=== PATIENT | male | born 1960 | race Caucasian/White ===

== ENCOUNTER 2022-04-06 09:37 | Emergency (ER) | payer SELFPAY ==
[~2022-04-06] VITALS: Ht 180.3 cm; Wt 90.0 kg
[2022-04-06] MEDS ORDERED: LIDOCAINE HCL/PF 1% 10 MG/ML 5ML VIAL INFIL ONE ×2 (10:30→12:15)
[2022-04-06] MEDS ORDERED: BACITRACIN ZINC OINT UDPKT TOP ONE (10:30)
[2022-04-06] MEDS ORDERED: HYDROCODONE/ACETAMINOPHEN 5/325MG TABLET PO ONE (10:30)
[2022-04-06] MEDS ORDERED: TETANUS, DIPHTHERIA, PERTUSSIS VAC/PF 0.5ML (>10YR OLD) IM ONE (10:30)
[2022-04-06 11:26] VITALS: BP 177/93
[2022-04-06] MEDS ORDERED: IBUP-2029 PO (13:02)
== END 2022-04-06 13:36 | disposition home or self-care (01) ==
LOC: ER 09:37
DX: S61.011A Laceration without foreign body of right thumb without damage to nail, initial encounter (principal); M10.9 Gout, unspecified; W27.0XXA Contact with workbench tool, initial encounter; Y93.89 Activity, other specified; Y92.9 Unspecified place or not applicable
CPT/HCPCS: 12002; 73140; 90471; 90715; 99283; J3490; Z7610